=== PATIENT | female | born 1995 | race Two or more races ===

== ENCOUNTER 2020-10-15 13:19 | Emergency (ER) | payer OTHER ==
[~2020-10-15] VITALS: Ht 160 cm; Wt 113.4 kg
[2020-10-15] MEDS ORDERED: ZITHROMAX500 MG PO (16:11)
[2020-10-15] MEDS ORDERED: ZYRTEC10 M3 PO (16:11)
== END 2020-10-15 16:12 | disposition home or self-care (01) ==
LOC: ER 13:19
DX: N92.5 Other specified irregular menstruation (principal); R60.0 Localized edema; B96.0 Mycoplasma pneumoniae [M. pneumoniae] as the cause of diseases classified elsewhere

== ENCOUNTER 2021-03-26 16:38 | Emergency (ER) | payer OTHER ==
[~2021-03-26] VITALS: Ht 160 cm; Wt 115.7 kg
[~2021-03-26 16:38] MED LIST: ZITHROMAX500 MG PO; ZYRTEC10 M3 PO
== END 2021-03-26 20:16 | disposition home or self-care (01) ==
LOC: ER 16:38
DX: J45.901 Unspecified asthma with (acute) exacerbation (principal)

== ENCOUNTER 2021-07-02 00:22 | Emergency (ER) | payer OTHER ==
[~2021-07-02] VITALS: Ht 160 cm; Wt 113.4 kg
[2021-07-02] MEDS ORDERED: PROTONIX20 MG PO (05:34)
[2021-07-02] MEDS ORDERED: ACETAMINOPHEN650 M2 PO (05:34)
[2021-07-02] MEDS ORDERED: PEPCID AC20 MG PO (05:34)
[2021-07-02] MEDS ORDERED: LEVSIN0.125 MG PO (05:34)
[2021-07-02] MEDS ORDERED: INTESTINEX680 M2 PO (05:34)
[2021-07-02] MEDS ORDERED: AZITHROMYCIN500 MG PO (05:34)
== END 2021-07-02 05:51 | disposition home or self-care (01) ==
LOC: ER 00:22
DX: A49.3 Mycoplasma infection, unspecified site (principal); Z03.818 Encounter for observation for suspected exposure to other biological agents ruled out

== ENCOUNTER 2021-08-17 19:39 | Emergency (ER) | payer OTHER ==
[~2021-08-17] VITALS: Ht 167.6 cm; Wt 104.3 kg
[~2021-08-17 19:39] MED LIST changes: +ACETAMINOPHEN650 M2 PO; +AZITHROMYCIN500 MG PO; +INTESTINEX680 M2 PO; +LEVSIN0.125 MG PO; +PEPCID AC20 MG PO; +PROTONIX20 MG PO
[2021-08-17] MEDS ORDERED: ZITHROMAX500 MG PO (22:11)
== END 2021-08-17 22:39 | disposition home or self-care (01) ==
LOC: ER 19:39
DX: U07.1 COVID-19 (principal); B34.9 Viral infection, unspecified